=== PATIENT | female | born 1995 | race Caucasian/White ===

== ENCOUNTER 2018-01-18 17:14 | Emergency (ER) | payer OTHER, SELFPAY ==
[2018-01-18] MEDS ORDERED: Ondansetron ODT 4 MG TAB ONE (17:33)
== END 2018-01-18 17:36 | disposition home or self-care (01) ==
LOC: BURERS 17:14
DX: R11.2 Nausea with vomiting, unspecified (principal)
CPT/HCPCS: 99283; Q0162